=== PATIENT | female | born 1950 | race Caucasian/White ===

== ENCOUNTER 2017-05-02 10:50 | Day surgery (SDC) | payer MEDICARE, OTHER ==
[~2017-05-02 10:50] MED LIST: Lactated Ringers 1,000 ML IV SCH; Sodium Chloride 0.9% 10 ML Syringe FLUSH PRN
[2017-05-02] MEDS ORDERED: fentaNYL 100 MCG/2 ML SDV ONE ×2 (12:17→12:26)
[2017-05-02] MEDS ORDERED: Midazolam 1 MG/ML 2 ML SDV ONE ×2 (12:17→12:26)
[2017-05-02] MEDS ORDERED: Propofol 200 MG/20 ML SDV ONE ×3 (12:17→13:00)
--- NOTE | 2017-05-02 12:21 | PCM.HPR ---
H & P Addendum review - H & P Addendum Review Date of Original H & P: 04/24/17 Date Reviewed: 05/02/17 Time Reviewed: 12:20 Patient was Examined: No Changes
[2017-05-02] MEDS ORDERED: Albuterol 8 GM Inhaler INH ONE (12:26)
--- NOTE | 2017-05-02 13:06 | PCM.OPNOTE ---
- General Post-Op/Procedure Note Date of Surgery/Procedure: 05/02/17 Operative Procedure(s): Colonoscopy with polypectomy Findings: Colon Polyps Tics Pre Op Diagnosis: Screening Post-Op Diagnosis: Same Anesthesia Technique: MAC Primary Surgeon: Geovanni Avila Anesthesia Provider: Mary Ruiz Pathology: Polyps EBL in mLs: 0 Condition: Good
--- NOTE | 2017-05-02 14:16 | OR ---
Date of Procedure: 05/02/2017 PREOPERATIVE DIAGNOSIS: Colon screening. POSTOPERATIVE DIAGNOSES: 1. Colon polyps. 2. Sigmoid diverticulosis. PROCEDURE: Colonoscopy with polypectomy. ANESTHESIA: IV sedation. PROCEDURE IN DETAIL: The patient was brought to the procedure room where she was placed on her left side and IV sedation administered. Digital rectal exam was performed which was normal. Colonoscope was inserted and advanced to the level of the cecum without difficulty. I was able to see the ileocecal valve and into the cecum, but I could not get over the ileocecal valve to inspect the entire cecum. The prep was good, and surfaces were well visualized. Upon withdrawing the scope, the ascending, transverse, and descending colon were normal in appearance. Sigmoid colon had many diverticula with spasm throughout. There were two polyps in the sigmoid colon. The first was a 10 mm sessile polyp, located 40 cm from the anal verge, that was removed with a cautery snare and retrieved in the polyp trap. The second polyp was also 10 mm semipedunculated polyp, located 25 cm from the anal verge. This was also removed with a cautery snare and retrieved in the polyp trap. Rectum was normal, and retroflexion was normal. Air was removed and the scope withdrawn. The patient tolerated the procedure well and returned to recovery in stable condition. Recommend the patient to undergo a colonoscopy again in 2 years because of the two large adenomatous polyps that were identified. JAMILA LOVELACE MD /[id number]
== END 2017-05-02 14:44 | disposition home or self-care (01) ==
LOC: LL.SDS 10:50
PROVIDERS: ATTEND Surgery
DX: Z12.11 Encounter for screening for malignant neoplasm of colon (principal); D12.5 Benign neoplasm of sigmoid colon; Z86.010 Personal history of colon polyps; K57.30 Diverticulosis of large intestine without perforation or abscess without bleeding; J44.9 Chronic obstructive pulmonary disease, unspecified; E78.5 Hyperlipidemia, unspecified; E03.9 Hypothyroidism, unspecified; Z79.82 Long term (current) use of aspirin; Z79.899 Other long term (current) drug therapy; F17.210 Nicotine dependence, cigarettes, uncomplicated
CPT/HCPCS: 45385; A9270; J2250; J2704; J3010; J7120; 00810-QZ; 88305

== ENCOUNTER 2019-04-30 07:51 | Day surgery (SDC) | payer MEDICARE, OTHER ==
[~2019-04-30 07:51] MED LIST changes: -Lactated Ringers 1,000 ML IV SCH
[2019-04-30] MEDS ORDERED: Propofol 200 MG/20 ML SDV ONE ×2 (08:08→08:52)
[2019-04-30] MEDS: Lactated Ringers 1,000 ML IV SCH (08:33)
--- NOTE | 2019-04-30 08:58 | PCM.HPR ---
H & P Addendum review - H & P Addendum Review Date of Original H & P: 04/01/19 Date Reviewed: 04/30/19 Time Reviewed: 08:57 Patient was Examined: No Changes
--- NOTE | 2019-04-30 09:26 | PCM.OPNOTE ---
- General Post-Op/Procedure Note Date of Surgery/Procedure: 04/30/19 Operative Procedure(s): Colonoscopy to Hepatic Flexure Findings: Sig Tics Pre Op Diagnosis: Hx Polyps Post-Op Diagnosis: Same Anesthesia Technique: MAC Primary Surgeon: Geovanni Avila Complications: None Condition: Good
--- NOTE | 2019-04-30 10:10 | OR ---
Date of Procedure: 04/30/2019 PREOPERATIVE DIAGNOSES: 1. History of colon polyps. 2. Sigmoid diverticulosis. POSTOPERATIVE DIAGNOSIS: Sigmoid diverticulosis. PROCEDURE: Colonoscopy to the hepatic flexure. ANESTHESIA: IV sedation. DESCRIPTION OF PROCEDURE: The patient was brought to the procedure room where she was placed on her left side and IV sedation administered. Digital rectal exam was performed which was normal. Colonoscope was inserted and advanced through a tortuous sigmoid colon with multiple large diverticula present. I was able to advance the scope through the transverse colon and visualized the liver shadow. Despite pressure on the abdomen and changing to the supine position, I was unable to advance into the ascending colon. Up to this point, prep was good with some liquid stool remaining that was mostly suctioned. The transverse and descending colon were normal. Sigmoid colon was tortuous with multiple diverticula present. Rectum was normal and retroflexion was normal. The area in her sigmoid colon, where she had a previous polypectomy was performed, appeared normal. Air was removed and the scope withdrawn. The patient tolerated the procedure well and returned to Recovery in stable condition. The patient could consider colonoscopy again in 5 years if her health allows at that time. JAMILA LOVELACE MD /[id number]
== END 2019-04-30 10:33 | disposition home or self-care (01) ==
LOC: LL.SDS 07:51
PROVIDERS: ATTEND Surgery
DX: Z12.11 Encounter for screening for malignant neoplasm of colon (principal); K57.30 Diverticulosis of large intestine without perforation or abscess without bleeding; K63.89 Other specified diseases of intestine; I10 Essential (primary) hypertension; E11.9 Type 2 diabetes mellitus without complications; E78.5 Hyperlipidemia, unspecified; E03.9 Hypothyroidism, unspecified; E66.9 Obesity, unspecified; J44.9 Chronic obstructive pulmonary disease, unspecified; F17.210 Nicotine dependence, cigarettes, uncomplicated; Z86.010 Personal history of colon polyps; Z79.82 Long term (current) use of aspirin; Z79.899 Other long term (current) drug therapy; Z68.31 Body mass index [BMI] 31.0-31.9, adult
CPT/HCPCS: J2704; J7120

== ENCOUNTER → 2019-05-06 | Outpatient (CLI) | payer MEDICARE, OTHER | LOC: LL.MAM 09:53 | PROVIDERS: ATTEND Physician Assistant | DX: Z12.31 Encounter for screening mammogram for malignant neoplasm of breast (principal) | CPT/HCPCS: 77063; 77067 ==

== ENCOUNTER 2021-09-15 08:03 | Emergency (ER) | payer MEDICARE, OTHER ==
[2021-09-15 09:26] LABS: ANION GAP 10.7 meq/L (7-15); CHLORIDE,CL 103 mmol/L (98-107); SODIUM,NA 139 mmol/L (136-145)
== END 2021-09-15 10:30 | disposition home or self-care (01) ==
LOC: LL.ED 08:03
DX: R04.0 Epistaxis (principal); E78.00 Pure hypercholesterolemia, unspecified; J44.9 Chronic obstructive pulmonary disease, unspecified; E66.9 Obesity, unspecified; Z68.30 Body mass index [BMI] 30.0-30.9, adult; Z79.82 Long term (current) use of aspirin; Z79.899 Other long term (current) drug therapy
CPT/HCPCS: 30901; 30903; 36415; 80053; 85025; 85610; 99283-25; 99284

== ENCOUNTER 2023-11-28 11:54 | Day surgery (SDC) | payer MEDICARE, OTHER ==
[~2023-11-28 11:54] MED LIST changes: +Midazolam 1 MG/ML 2 ML SDV ONE; +Propofol 200 MG/20 ML SDV ONE; -Sodium Chloride 0.9% 10 ML Syringe FLUSH PRN
[2023-11-28] MEDS: Lactated Ringers 1,000 ML IV SCH (12:26)
[2023-11-28] MEDS ORDERED: Sodium Chloride 0.9% 10 ML Syringe FLUSH PRN (12:30)
== END 2023-11-28 15:42 | disposition home or self-care (01) ==
LOC: LL.SDS 11:54
PROVIDERS: ATTEND Surgery
DX: Z12.11 Encounter for screening for malignant neoplasm of colon (principal); D12.5 Benign neoplasm of sigmoid colon; K57.30 Diverticulosis of large intestine without perforation or abscess without bleeding; J44.9 Chronic obstructive pulmonary disease, unspecified; E78.5 Hyperlipidemia, unspecified; I10 Essential (primary) hypertension; E03.9 Hypothyroidism, unspecified; E66.01 Morbid (severe) obesity due to excess calories; Z79.890 Hormone replacement therapy; Z79.899 Other long term (current) drug therapy; Z79.82 Long term (current) use of aspirin; Z87.891 Personal history of nicotine dependence; Z68.39 Body mass index [BMI] 39.0-39.9, adult; Z86.010 Personal history of colon polyps
CPT/HCPCS: 00811; 99100; J2250; J2704; J7120

== ENCOUNTER 2024-08-31 19:27 | Observation (INO) | payer MEDICARE, OTHER ==
[2024-08-31] MEDS ORDERED: Sodium Chloride 0.9% 10 ML Syringe FLUSH PRN (19:34)
[2024-08-31 19:53] LABS: BASOPHILS ABSOLUTE AUTO 0.02 K/uL (0.00-0.20); BASOPHILS PERCENT AUTO 0.3 % (0.0-2.0); EOSINOPHILS ABSOLUTE AUTO 0.02 K/uL (0.00-0.50); EOSINOPHILS PERCENT AUTO 0.3 % (0.0-5.0); HEMATOCRIT 42.7 % (34.0-46.0); HEMOGLOBIN 14.3 g/dL (11.7-15.5); IMMATURE GRAN ABSOLUTE AUTO 0.01 10^3/uL (0.00-0.04); IMMATURE GRAN PERCENT AUTO 0.2 % (0.0-0.4); LYMPHOCYTES ABSOLUTE AUTO 0.93 K/uL (0.50-3.50); MEAN CORPUSCULAR HEMOGLOBIN 28.8 pg (28.2-33.3); MEAN CORPUSCULAR HGB CONC 33.5 g/dL (31.7-36.0); MEAN CORPUSCULAR VOLUME 85.9 fL (84.0-98.0); MONOCYTES ABSOLUTE AUTO 0.92 K/uL (0.00-1.00); MONOCYTES PERCENT AUTO 15.8 % (2.0-14.0); NEUTROPHILS ABSOLUTE AUTO 3.93 K/uL (1.40-7.00); NEUTROPHILS PERCENT AUTO 67.4 % (45.0-80.0); PLATELET COUNT,PLT 297 K/uL (150-350); RED BLOOD CELL COUNT 4.97 M/uL (3.77-5.09); RED CELL DISTRIBUTION WIDTH 14.4 % (11.2-14.1); WHITE BLOOD CELL COUNT,WBC 5.8 K/uL (4.0-10.2)
[2024-08-31 20:26] LABS: ALANINE AMINOTRANSFERASE,ALT 32 U/L (12-78); ALBUMIN 3.4 g/dL (3.4-5.0); ALKALINE PHOSPHATASE 86 IU/L (46-116); ANION GAP 12.7 meq/L (7-15); ASPARTATE AMNIOTRANSFERASE,AST 20 U/L (15-37); BILIRUBIN TOTAL 0.3 mg/dL (0.2-1.0); BLOOD UREA NITROGEN,BUN 21 mg/dL (7-18); CALCIUM 9.3 mg/dL (8.5-10.1); CARBON DIOXIDE,CO2 24.3 mmol/L (21.0-32.0); CHLORIDE,CL 103 mmol/L (98-107); CREATININE 1.17 mg/dL (0.51-1.17); GLUCOSE RANDOM 117 mg/dL (70-99); MAGNESIUM 1.8 mg/dL (1.8-2.4); POTASSIUM,K 3.7 mmol/L (3.5-5.1); PRO B-TYPE NATRIUR PEPT,BNPPRO 91 pg/mL (0-125); PROTEIN TOTAL,TP 7.4 g/dL (6.4-8.2); SODIUM,NA 140 mmol/L (136-145)
[2024-08-31 20:29] LABS: ESTIMATED GFR 49 mL/min (>=60)
[2024-08-31 20:31] LABS: PROTHROMBIN TIME 9.9 SEC (9.0-11.1)
[2024-08-31] MEDS: Albuterol/Ipratropium 3.0-0.5 MG/3 ML Neb Soln NEB PRN (21:40)
[2024-08-31] MEDS ORDERED: Albuterol 6.7 GM Inhaler INH PRN (21:50)
[2024-08-31] MEDS: Albuterol/Ipratropium 3.0-0.5 MG/3 ML Neb Soln ONE (22:26)
[2024-09-01] MEDS ORDERED: Alendronate 70 MG Tab PO SCH (07:00)
[2024-09-01] MEDS ORDERED: Calcium Carbonate/Vitamin D3 625 MG-125 Unit Tab PO SCH (08:00)
[2024-09-01] MEDS: Pravastatin 20 MG Tab PO SCH (08:05)
[2024-09-01] MEDS: Potassium Chloride 20 MEQ Tab.ER PO SCH (08:05)
[2024-09-01] MEDS: Aspirin 81 MG Tab.EC PO SCH (08:07)
[2024-09-01] MEDS: Furosemide 40 MG Tab PO SCH (08:07)
[2024-09-01] MEDS: Levothyroxine 100 MCG Tab PO SCH (08:07)
[2024-09-01] MEDS: Calcium Carbonate/Vitamin D3 1500 MG-400 Units Tab PO SCH (08:07)
[2024-09-01] MEDS: Levothyroxine 25 MCG Tab PO SCH (08:08)
[2024-09-01] MEDS: Cholecalciferol (Vitamin D3) 25 MCG Tab PO SCH (08:08)
[2024-09-01] MEDS: Formoterol/Mometasone 200-5 MCG 8.8 GM Inhaler IH SCH (08:30)
[2024-09-01] MEDS: Tiotropium Bromide 4 GM Inhalation Spray (2.5mcg/1 dose; 10 doses) INH SCH ×2 (08:34→14:03)
[2024-09-06] MEDS ORDERED: Alendronate 70 MG Tab PO SCH (06:00)
== END 2024-09-01 12:58 | disposition home or self-care (01) ==
LOC: LL.ED 19:27 → LL.MS 21:32 → UNDOADMOB 21:32 → LL.MS 21:48
PROVIDERS: ADMIT Physician Assistant; ATTEND Physician Assistant
DX: J44.9 Chronic obstructive pulmonary disease, unspecified (principal); J43.9 Emphysema, unspecified; R06.02 Shortness of breath; E78.00 Pure hypercholesterolemia, unspecified; E66.9 Obesity, unspecified; Z68.30 Body mass index [BMI] 30.0-30.9, adult; Z79.899 Other long term (current) drug therapy; Z79.890 Hormone replacement therapy; Z79.82 Long term (current) use of aspirin
CPT/HCPCS: 36415; 71045; 80053; 83735; 83880; 84484; 85025; 85610; 93005; 94640; 94761; 99285; A9270; 93010; 99223; 99239; G0378; J7620-GY